=== PATIENT | male | born 1995 | race Caucasian/White ===

== ENCOUNTER 2018-09-12 19:26 | Emergency (ER) | payer SELFPAY ==
[2018-09-12 19:32] VITALS: BP 136/81; PULSE 103; RESP 16; TEMP 98.5
[2018-09-12] MEDS ORDERED: SULFAMETH-TMP DS STARTER PACK 2 TAB BTL PO STA (19:44)
[2018-09-12] MEDS ORDERED: ACET/COD 300 MG/30 MG STARTER PACK 6 TAB BTL PO STA (19:44)
--- NOTE | 2018-09-12 19:45 | ED ---
General Adult HPI - General Chief complaint: Dental/Oral Stated complaint: Dental Time Seen by Provider: 09/12/18 19:37 Source: patient, RN notes reviewed Mode of arrival: ambulatory Limitations: no limitations - History of Present Illness Initial comments: 23-year-old male presents emergency Department chief complaint of right-sided facial abscess. Patient states he initially thought he had a dental infection but he realizes that he is on his hair follicle of his face. Patient states he believes he has infected hair follicle. Patient denies any fevers or chills. He has NO KNOWN DRUG ALLERGIES. Patient states that he has no trismus. Patient denies any other complaints. - Related Data Previous Rx's Medication Instructions Recorded Sulfamethox-Tmp 800-160Mg [Bactrim 1 each PO Q12HR #20 tab 09/12/18 Ds] Allergies Allergy/AdvReac Type Severity Reaction Status Date / Time No Known Allergies Allergy Verified 09/12/18 19:32 Review of Systems ROS Statement: Those systems with pertinent positive or pertinent negative responses have been documented in the HPI. ROS Other: All systems not noted in ROS Statement are negative. Past Medical History Past Medical History: Hearing Disorder / Deafness History of Any Multi-Drug Resistant Organisms: None Reported Past Surgical History: Ear Surgery Additional Past Surgical History / Comment(s): eye, ear tubes Past Psychological History: No Psychological Hx Reported Smoking Status: Current every day smoker Past Alcohol Use History: Rare Past Drug Use History: Marijuana General Exam Limitations: no limitations General appearance: alert, in no apparent distress Head exam: Present: atraumatic, normocephalic, normal inspection Eye exam: Present: normal appearance, PERRL, EOMI. Absent: scleral icterus, conjunctival injection, periorbital swelling ENT exam: Present: mucous membranes moist, TM's normal bilaterally, normal external ear exam. Absent: normal exam (Right cheek, mandibular region there is 2 cm abscess fluctuant with some yellow crusting), normal oropharynx (Poor dentition though no abscess or erythema noted of the gums) Neck exam: Present: normal inspection, full ROM. Absent: tenderness, meningismus, lymphadenopathy Respiratory exam: Present: normal lung sounds bilaterally. Absent: respiratory distress, wheezes, rales, rhonchi, stridor Cardiovascular Exam: Present: regular rate, normal rhythm, normal heart sounds. Absent: systolic murmur, diastolic murmur, rubs, gallop, clicks Course Vital Signs 09/12/18 19:29 Temperature 98.5 F Pulse Rate 103 H Respiratory 16 Rate Blood Pressure 136/81 O2 Sat by Pulse 99 Oximetry Procedures - Incision & Drainage Consent Obtained: verbal consent Indication: Facial abscess Site: face Size (cm): 2 I&D Cleaning Method: Alcohol Wipe Sterile Field Used?: No Needle Aspiration Performed?: Yes Irrigation Performed?: No I&D Drainage Obtained: Pus (3 mL) Culture Obtained?: Yes Patient Tolerated Procedure: well, no complications Medical Decision Making - Medical Decision Making 23-year-old male presented for right-sided facial abscess. This was opened with 18-gauge needle 3 mL of purulent drainage was removed patient tolerated well, patient will be placed on Bactrim, we did discuss warm compresses and return parameters. Disposition Clinical Impression: Facial abscess Disposition: HOME SELF-CARE Condition: Stable Instructions: Abscess Incision and Drainage (ED), Abscess (ED) Additional Instructions: Please return to the Emergency Department if symptoms worsen or any other concerns. Prescriptions: Sulfamethox-Tmp 800-160Mg [Bactrim Ds] 1 each PO Q12HR #20 tab Is patient prescribed a controlled substance at d/c from ED?: No Referrals: None,Stated [Primary Care Provider] - 1-2 days Time of Disposition: 19:45
== END 2018-09-12 20:00 | disposition home or self-care (01) ==
LOC: EC 19:26
DX: L02.01 Cutaneous abscess of face (principal); F17.200 Nicotine dependence, unspecified, uncomplicated; H91.90 Unspecified hearing loss, unspecified ear; Z96.20 Presence of otological and audiological implant, unspecified
CPT/HCPCS: 10160; 87070; 87205; 99283

== ENCOUNTER 2018-09-14 17:24 | Emergency (ER) | payer OTHER ==
[2018-09-14 17:36] VITALS: BP 112/61; PULSE 66; RESP 18; TEMP 97.4
--- NOTE | 2018-09-14 18:55 | ED ---
Skin/Abscess/FB HPI - General Chief complaint: Skin/Abscess/Foreign Body Stated complaint: Jaw Swelling Time Seen by Provider: 09/14/18 17:37 Source: patient, RN notes reviewed, old records reviewed Mode of arrival: ambulatory Limitations: no limitations - History of Present Illness Initial comments: Patient is a 23 year old male for R sided facial and jaw swelling. Patient was seen in ED 3 days ago and had facial abscess drained with 18 gauge needle. Patient was placed on low dose bactrim and reports to taking medications. Patient returns today for worsening swelling. Patient has a thick de [place] rosa, and belives it is from an ingrown hair. Patient denies difficulty swallowing, trismus. Denies fevers. - Related Data Previous Rx's Medication Instructions Recorded Sulfamethox-Tmp 800-160Mg [Bactrim 1 each PO Q12HR #20 tab 09/12/18 Ds] Acetaminophen with Codeine 1 tab PO Q6H PRN 3 Days #12 tab 09/14/18 [Tylenol w/codeine #3] Cephalexin [Keflex] 500 mg PO Q6HR #40 cap 09/14/18 Sulfamethox-Tmp 800-160Mg [Bactrim 2 tab PO Q12HR #40 tab 09/14/18 DS 800-160 mg] Allergies Allergy/AdvReac Type Severity Reaction Status Date / Time No Known Allergies Allergy Verified 09/14/18 17:35 Review of Systems ROS Statement: Those systems with pertinent positive or pertinent negative responses have been documented in the HPI. ROS Other: All systems not noted in ROS Statement are negative. Past Medical History Past Medical History: Hearing Disorder / Deafness History of Any Multi-Drug Resistant Organisms: None Reported Past Surgical History: Ear Surgery Additional Past Surgical History / Comment(s): eye, ear tubes Past Psychological History: No Psychological Hx Reported Smoking Status: Current every day smoker Past Alcohol Use History: Rare Past Drug Use History: Marijuana General Exam - General Exam Comments Initial Comments: This is a 23 year old male, no acute distress. Limitations: no limitations General appearance: alert, in no apparent distress Head exam: Present: atraumatic, normocephalic, normal inspection Eye exam: Present: normal appearance, PERRL, EOMI. Absent: scleral icterus, conjunctival injection, periorbital swelling ENT exam: Present: normal exam, mucous membranes moist, other (4cm facial abscess near R jaw. Palpable pustule. ) Neck exam: Present: normal inspection. Absent: tenderness, meningismus, lymphadenopathy Respiratory exam: Present: normal lung sounds bilaterally. Absent: respiratory distress, wheezes, rales, rhonchi, stridor Cardiovascular Exam: Present: regular rate, normal rhythm, normal heart sounds. Absent: systolic murmur, diastolic murmur, rubs, gallop, clicks GI/Abdominal exam: Present: soft, normal bowel sounds. Absent: distended, tenderness, guarding, rebound, rigid Back exam: Present: normal inspection Neurological exam: Present: alert, oriented X3, CN II-XII intact Psychiatric exam: Present: normal affect, normal mood Course Vital Signs 09/14/18 17:32 Temperature 97.4 F L Pulse Rate 66 Respiratory 18 Rate Blood Pressure 112/61 O2 Sat by Pulse 98 Oximetry Procedures - Incision & Drainage Consent Obtained: verbal consent Time Out Performed?: Yes Indication: abscess Site: face Size (cm): 4 Anesthetic Used: lidocaine 1% Amount (mLs): 3 I&D Cleaning Method: Chloroprep Sterile Field Used?: Yes Scalpel Used: #11 I&D Drainage Obtained: Pus, Blood Packing: Iodoform Culture Obtained?: Yes Patient Tolerated Procedure: well, no complications Medical Decision Making - Medical Decision Making 23 year old presents for reevaluation for facial abscess. The area was drained with 18 gauge needle and reclosed, reforming abscess. He has no fevers, denies trismus. Appears non toxic and well. Patient had incsion and drainage from face and iodoform was palced. Discussed adding keflex and increasing bactrim dose. Discussed strict return parameters and ENT follow up. Discussed he may need to return for packing replacement. Disposition Clinical Impression: Facial abscess Disposition: HOME SELF-CARE Condition: Good Instructions: Abscess (ED) Additional Instructions: Patient advised to follow-up with primary care physician. Please return to emergency department 2 days for reevaluation for packing. Patient should take the medications as prescribed and use Motrin and the pain medicine as prescribed. Prescriptions: Acetaminophen with Codeine [Tylenol w/codeine #3] 1 tab PO Q6H PRN 3 Days #12 tab PRN Reason: Pain Cephalexin [Keflex] 500 mg PO Q6HR #40 cap Sulfamethox-Tmp 800-160Mg [Bactrim DS 800-160 mg] 2 tab PO Q12HR #40 tab Is patient prescribed a controlled substance at d/c from ED?: Yes When asked, does pt state using other controlled substances?: No If prescribed controlled substance>3 days was MAPS reviewed?: Prescribed <3 Days If opioid is for acute pain is fill amount 7 days or less?: Yes If Rx opioid, was Start Talking consent form obtained?: Yes Referrals: None,Stated [Primary Care Provider] - 1-2 days Dominik Li MD [STAFF PHYSICIAN] - 1-2 days Time of Disposition: 18:52
== END 2018-09-14 19:08 | disposition home or self-care (01) ==
LOC: EC 17:24
DX: L02.01 Cutaneous abscess of face (principal); F17.200 Nicotine dependence, unspecified, uncomplicated
CPT/HCPCS: 10060; 87070; 87205; 99284

== ENCOUNTER → 2019-06-25 | Outpatient (CLI) | payer BC ==
--- NOTE | 2019-06-27 13:58 | MR ---
EXAMINATION TYPE: MR brain wo con DATE OF EXAM: 06/25/2019 COMPARISON: CT IAC 2001 HISTORY: Migraines headaches. TECHNIQUE: Multiplanar, multisequence imaging of the brain and brainstem is performed without IV cont rast. FINDINGS: Diffusion weighted images demonstrate no evidence of a recent infarct or other diffusion abnormality. There is persistent prominent CSF anterior to the left cerebellar hemisphere and the posterior crania l fossa measuring roughly 3.5 x 1.6 cm axial image 8 felt to reflect arachnoid cyst with local mass e ffect. The ventricular system and cisternal spaces are normal in size and appearance. The brain vol ume is age appropriate. No significant suspicious white matter changes are identified. Midline structures demonstrate normal morphology. The craniocervical junction appears within normal limits. Normal vascular flow voids are present. The visualized sinuses are clear and the globes are i ntact. IMPRESSION: Redemonstration of the left anterior posterior cranial fossa 3.5 cm arachnoid cyst with l ocal mass effect
== END | disposition home or self-care (01) ==
LOC: RADMRIMAIN 20:52
PROVIDERS: ATTEND Family Medicine
DX: G93.0 Cerebral cysts (principal)
CPT/HCPCS: 70551

== ENCOUNTER 2021-08-19 17:21 | Emergency (ER) | payer BC ==
--- NOTE | 2021-08-19 18:12 | ED ---
General Adult HPI - General Stated complaint: Covid Exposure, Wants covid test Time Seen by Provider: 08/19/21 18:06 - History of Present Illness Initial comments: Sonny is a pleasant 26-year-old gentleman who presents to the emergency department today via private vehicle requesting COVID-19 test. Patient believes to have had cold exposures over the past week, his mother unfortunately yesterday in her hospital COVID-19. Patient is currently asymptomatic. He is a cigarette smoker. Patient does report that he has had normal seasonal ALLERGIES which is been suffering since prior to the closure COVID-19. No change in his nasal congestion. - Related Data Previous Rx's Medication Instructions Recorded Sulfamethox-Tmp 800-160Mg [Bactrim 1 each PO Q12HR #20 tab 09/12/18 Ds] Acetaminophen with Codeine 1 tab PO Q6H PRN 3 Days #12 tab 09/14/18 [Tylenol w/codeine #3] Cephalexin [Keflex] 500 mg PO Q6HR #40 cap 09/14/18 Sulfamethox-Tmp 800-160Mg [Bactrim 2 tab PO Q12HR #40 tab 09/14/18 DS 800-160 mg] Allergies Allergy/AdvReac Type Severity Reaction Status Date / Time No Known Allergies Allergy Verified 09/14/18 17:35 Review of Systems ROS Statement: Those systems with pertinent positive or pertinent negative responses have been documented in the HPI. ROS Other: All systems not noted in ROS Statement are negative. Past Medical History Past Medical History: Hearing Disorder / Deafness History of Any Multi-Drug Resistant Organisms: None Reported Past Surgical History: Ear Surgery Additional Past Surgical History / Comment(s): eye, ear tubes Past Psychological History: No Psychological Hx Reported Past Alcohol Use History: Rare Past Drug Use History: Marijuana General Exam - General Exam Comments Initial Comments: Physical Exam GENERAL: Patient is well-developed and well-nourished. Patient is nontoxic and well-hydrated and is in no distress. HENT: Normocephalic, Atraumatic. EYES: PERRL, EOMI PULMONARY: Unlabored respirations. CARDIOVASCULAR: RRR Warm and well perfused extremities ABDOMEN: Non-distended SKIN: No rashes or bruising : Deferred NEUROLOGIC: Alert and oriented Normal speech Normal gait MUSCULOSKELETAL: Moving all extremities with no apparent injury PSYCHIATRIC: No SI/HI Medical Decision Making - Medical Decision Making The patient was seen and evaluated history is obtained from patient, patient was swabbed for COVID-19, at this time he is stable for discharge home be notified of his results. Disposition Clinical Impression: Exposure to COVID-19 virus Disposition: HOME SELF-CARE Condition: Stable Additional Instructions: We recommend you take immunity support vitamins such as Emergen-C (any brand) that contains Vitamin C, Vitamin D and Zinc If you are positive, buy a pulse ox and monitor your heart rate and oxygen, return to the ER if your oxygen is less than 92% or your heart rate stays over 110 Return to the ER for any chest pain or new or concerning symptoms We recommend you get vaccinated against COVID Is patient prescribed a controlled substance at d/c from ED?: No Referrals: None,Stated [Primary Care Provider] - 1-2 days
[2021-08-19 18:19] VITALS: BP 108/69; PULSE 68; RESP 20; TEMP 98.5
== END 2021-08-19 18:30 | disposition home or self-care (01) ==
LOC: EC 17:21
DX: Z20.822 Contact with and (suspected) exposure to COVID-19 (principal); F17.210 Nicotine dependence, cigarettes, uncomplicated; F12.90 Cannabis use, unspecified, uncomplicated
CPT/HCPCS: 87635; 99282

== ENCOUNTER 2022-06-29 19:19 | Emergency (ER) | payer BC ==
[2022-06-29 20:01] VITALS: BP 120/70; PULSE 70; RESP 16; TEMP 98.7
== END 2022-06-30 03:58 | disposition left against medical advice (07) ==
LOC: EC 19:19
DX: Z53.21 Procedure and treatment not carried out due to patient leaving prior to being seen by health care provider (principal)
CPT/HCPCS: 87635; 99499

== ENCOUNTER → 2023-04-12 | Outpatient (CLI) | payer BC ==
[2023-04-12 13:33] LABS: Basophils # (A) 0.07 X 10*3/uL (0.00-0.10); Basophils % (A) 0.9 %; Eosinophils # (A) 0.32 X 10*3/uL (0.04-0.35); Eosinophils % (A) 4.2 %; HCT 46.8 % (39.6-50.0); HGB 16.1 d/dL (12.0-15.0); Lymphocytes # (A) 2.45 X 10*3/uL (0.90-5.00); Lymphocytes % (A) 31.9 %; MCH 31.6 pg (27.0-32.0); MCHC 34.4 d/dL (32.0-37.0); MCV 91.9 FL (80.0-97.0); Mean Platelet Volume 10.4 FL (9.5-12.2); Monocytes % (A) 10.4 %; NRBC Per 100 WBC 0 X 10*3/uL (0.00-0.01); Neutrophils # (A) 4.03 X 10*3/uL (1.80-7.70); Neutrophils % (A) 52.5 %; Platelet Count 245 X 10*3/uL (140-440); RBC 5.09 X 10*6/uL (4.40-5.60); RDW 12.9 % (11.5-14.5); WBC 7.68 X 10*3/uL (4.50-10.00)
[2023-04-12 14:51] LABS: Uric Acid 4.8 mg/dL (3.7-8.7); VLDL Calculation 13.34 mg/dL (5.00-40.00)
[2023-04-12 14:54] LABS: ALT 23 U/L (10-49); AST 22 U/L (14-35); Albumin/Globulin Ratio 2.27 Ratio (1.60-3.17); Alkaline Phosphatase 73 U/L (41-126); BUN/Creat Ratio 16.27 Ratio (12.00-20.00); Blood Urea Nitrogen 17.9 mg/dL (9.0-27.0); Carbon Dioxide 22.5 mmol/L (21.6-31.8); Chloride 104 mmol/L (96-109); Chol/HDL Ratio 2.56 Ratio; Globulin 2.2 d/dL (1.6-3.3); Glucose 99 mg/dL (70-110); LDL Cholesterol,Calculated 78.1 mg/dL (0.0-131.0); Potassium 4.4 mmol/L (3.5-5.5); Sodium 139 mmol/L (135-145); Total Bilirubin 2.8 mg/dL (0.3-1.2); Total Protein 7.2 d/dL (6.2-8.2)
== END | disposition home or self-care (01) ==
LOC: LABMAIN 08:25
PROVIDERS: ATTEND Internal Medicine
DX: Z00.00 Encounter for general adult medical examination without abnormal findings (principal); Z11.59 Encounter for screening for other viral diseases; M25.562 Pain in left knee
CPT/HCPCS: 80053; 80061; 84443; 84550; 85025; 86803

== ENCOUNTER → 2023-05-14 | Outpatient (CLI) | payer BC ==
--- NOTE | 2023-05-14 08:20 | US ---
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 FINDINGS: EXAM MEASUREMENTS: Liver Length: 16.8 cm Gallbladder Wall: 0.1 cm CBD: 0.3 cm Right Kidney: 11.4x4.9x4.6 cm MANAGER GOVERNMENT NOTES: Pancreas: wnl Liver: wnl Gallbladder: wnl Evidence for sonographic Grant's sign: No CBD: wnl Right Kidney: wnl The pancreas is within normal limits. Liver is unremarkable without evidence of focal lesion or cirrh osis. Gallbladder is unremarkable without evidence of wall thickening, pericholecystic fluid, or chol elithiasis. Per inspector rough castings, negative sonographic Grant sign. The common bile duct within normal lambert its. The right kidney is unremarkable without evidence of hydronephrosis, nephrolithiasis, or contour deforming solid mass. IMPRESSION: Unremarkable right upper quadrant ultrasound.
== END | disposition home or self-care (01) ==
LOC: RADUSWWP 06:54
PROVIDERS: ATTEND Internal Medicine
DX: E80.6 Other disorders of bilirubin metabolism (principal); R79.89 Other specified abnormal findings of blood chemistry
CPT/HCPCS: 76705

== ENCOUNTER → 2023-05-28 | Outpatient (CLI) | payer BC ==
--- NOTE | 2023-06-04 20:22 | MR ---
EXAMINATION TYPE: MR knee LT wo con DATE OF EXAM: 05/28/2023 COMPARISON: None HISTORY: Left outer knee pain for 5 months. TECHNIQUE: Multiplanar, multisequence imaging of the left knee is performed without IV contrast. FINDINGS: The osseous structures are intact and there is no bone contusion or fracture. There is physiologic fluid in the joint space. The articular cartilages and joint spaces are normal without evidence for osteoarthritic change.. The quadriceps tendon and patellar tendon are intact. The cruciate and collateral ligaments are intact. There is no meniscal injury. IMPRESSION: No significant abnormality seen.
== END | disposition home or self-care (01) ==
LOC: RADMRIMAIN 18:39
PROVIDERS: ATTEND Internal Medicine
DX: M25.562 Pain in left knee (principal)